=== PATIENT | female | born 1930 | race Caucasian/White ===

== ENCOUNTER → 2017-09-03 | Outpatient (CLI) | payer OTHER, MEDICARE ==
[~2017-09-03] MED LIST: AMARYL1 MG PO; APAP500 PO; ASPIRIN EC81 M1 PO; ATENOLOL 25 MG25 M1 PG; CALCIUM PO; DILTIAZEM 24HR180 MG PO; FLAX OIL1000 MG PO; FOSINOPRIL SODI20 M1 PO; GLUCOPHAGE1000 MG PO; IBUPROFEN 200200 M1 PO; NORCO 5-325 TA1 EACH PO; RECLAST 55 MG/100 M IV; SIMVASTATIN40 MG PO
== END ==
LOC: RAD 08:47
DX: Z12.31 Encounter for screening mammogram for malignant neoplasm of breast (principal)

== ENCOUNTER → 2018-09-06 | Outpatient (CLI) | payer OTHER, MEDICARE | LOC: RAD 04:23 | DX: Z12.31 Encounter for screening mammogram for malignant neoplasm of breast (principal) ==

== ENCOUNTER 2018-12-15 10:07 | Inpatient (IN) | payer OTHER, MEDICARE ==
[~2018-12-15] VITALS: Ht 152.4 cm; Wt 59.9 kg
--- NOTE | ~2018-12-15 | HC ---
[facility] [address] [place] [address] CONSULTATION Name: ELINORCHELLY SHEEHAN Room #: 226-P [facility] IN M.R.#: [id number] Admission: 12/15/18 ������������������ Attend Phys: Barbara Love Discharge: ������������������ Date of : [birth year] Report #: [id number] THIS REPORT FOR: //name// CC: Barbara Mosqueda DATE OF SERVICE: 12/18/2018 HISTORY OF PRESENT ILLNESS: The patient is an 88-year-old white female who had a ground level fall 2 days prior to admission, had severe onset of back pain. She apparently was lifting groceries out of car. She was noted to have chronic L2 fracture, L3 superior endplate fracture and a T12 superior compression fracture. She underwent a T12 kyphoplasty on 12/17/2018 and her symptoms are much improved. Still is needing some assistance with functional mobility and we are seeing her in rehabilitation medicine consultation. PAST MEDICAL HISTORY: Includes diabetes mellitus type 2, peripheral neuropathy, mitral valve prolapse, carotid endarterectomy. She has had a prior laminectomy, chelation therapy every 8 weeks. MEDICATIONS: Please see the full medication listing. ALLERGIES: CODEINE. HABITS: No history of tobacco or alcohol abuse. SOCIAL HISTORY: Lives in an apartment alone, was premorbidly independent without adaptive device. Daughter lives nearby. REVIEW OF SYSTEMS: No current complaints of chest pain, shortness of breath, abdominal discomfort. She does have some distal lower extremity numbness, which is premorbid with her peripheral neuropathy. Otherwise, no focal extremity pain complaints. She notes the back pain is significantly improved, but still has concerns regarding returning back home. She is min assist with sit to stand transfers, min assist with ambulating 175 feet. Tone of the lower extremities appeared to be intact. She does have some decreased distal sensation. ASSESSMENT: An 88-year-old white female with following problems: 1. T12 compression fracture, status post kyphoplasty on 12/17/2018 with improvement in symptomatology. 2. Noted L2 and L3 vertebral body endplate fractures as well. 3. Hyponatremia that will need to be monitored post-discharge. 4. Diabetes mellitus type 2. 5. Peripheral neuropathy. 6. Recent fall with some gait instability. [facility] [address] [place] [address] CONSULTATION Name: CHELLY ALDRICH Room #: 226-P [facility] IN M.R.#: [id number] Admission: 12/15/18 ������������������ Attend Phys: Barbara Love Discharge: ������������������ Date of : [birth year] Report #: [id number] PLAN: The patient is min assist with basic mobility. She certainly is doing much better with the improvement in pain, but would recommend staying until tomorrow to get further therapy to work on advancing her independence and assess regarding gait aids. Case management to assist regarding home health care. If the patient still does not feel ready for discharge back to the home setting tomorrow, we would recommend a short correction facility stay. She appears on board per my history with her as far as going directly home tomorrow after getting a little more therapy. Thank you for asking us to assist in this patient's care. ��������������������������������������������� ���������������������������������������� By: ��������������������������������������������� 1305 [id number] Joselo Sumner MD /nt
[2018-12-15 10:12] VITALS: BP 187/68
[2018-12-15] MEDS ORDERED: ECOTRIN325 MG PO (11:04)
[2018-12-15] MEDS ORDERED: MUCINEX600 MG PO (11:06)
[2018-12-15] MEDS ORDERED: METAMUCIL1 EAC1 PO (11:10)
[2018-12-15] MEDS ORDERED: PROBIOTIC1 EAC5 PO (11:11)
[2018-12-15] MEDS ORDERED: VENTOLIN HFA 1818 GM INH (11:11)
[2018-12-15] MEDS ORDERED: ALLEGRA ALLERGY60 MG PO (11:12)
[2018-12-15 12:50] LABS: ABSOLUTE NEUTROPHILS 5.5 thou/uL (1.4-8.2); BASOPHILS 0.3 % (0.0-2.0); EOSINOPHILS 2.8 % (0.0-3.0); HEMOGLOBIN 11.5 gm/dL (12.0-15.0); LYMPHOCYTES 13.9 % (24.0-44.0); MCH 34.4 pg (26.0-34.0); MCHC 34.8 g/dL (28.0-37.0); MCV 98.9 fL (80.0-100.0); MONOCYTES 7.2 % (1.0-8.0); PLATELET COUNT 230 thou/uL (150-400); POLYS 75.8 % (36.0-66.0); RBC 3.34 mil/uL (4.20-5.00); RDW 13.7 % (10.5-14.5); WBC 7.2 thou/uL (4.0-11.0)
[2018-12-15 12:56] LABS: CALCIUM 8.6 mg/dL (8.5-10.1); CREATININE 0.7 mg/dL (0.6-1.0); POTASSIUM 4.5 mmol/L (3.5-5.1)
[2018-12-15 14:10] VITALS: BP 141/55
--- NOTE | 2018-12-15 14:14 | NUR ---
ATTEMPTED TO CALL REPORT; CHRISTINA LEIGHPT RN, "JUST ADMITTED ANOTHER PT SO CAN SHE CALL YOU BACK IN ABOUT 5 MINUTES?"; ESTEBAN, WARDROBE SPECIALTY WORKER, AWARE
[2018-12-15 17:08] VITALS: BP 145/51
--- NOTE | 2018-12-15 18:32 | NUR ---
PT ARRIVED TO ROOM FROM ED IN STABLE CONDITION AT APPROX 1500. ADMISSION ASSESSMENT COMPLETED. A&O,X4. C/O BACK PAIN FROM A FALL TWO DAYS AGO, NO PAIN MEDS REQUESTED AT THIS TIME. DAUGHTER AT BEDSIDE. ROOM AIR, NO SOA. REGULAR HEART SOUNDS, NO CHEST PAIN. SKIN INTACT. WILL CONTINUE TO MONITOR.
--- NOTE | 2018-12-15 19:23 | NUR ---
PT QUESTIONED METFORMIN DOSE, DOSE DOES NOT MATCH HOME DOSE. PHYSICIAN NOTIFIED. INSTRUCTED TO ASK PHARMACY. NO CHANGE IN DOSE AT THIS TIME. PT AWARE.
[2018-12-15 19:35] VITALS: BP 147/53
[2018-12-15 23:02] VITALS: BP 143/54
[2018-12-16 04:50] VITALS: BP 153/54
--- NOTE | 2018-12-16 05:26 | NUR ---
Around 2099, the staff was told the patient called for pain medication. When the staff got into the patient's room, patient was crying, angry, saying that she had called for pain medication one hour ago, nobody did anything to her. According to the patient, " the day girl" told her she would give her pain medication, but the day girl disappeared. According to the day nurse Jason, she gave the patient pain medication before she left. I checked the chart, patient got Hydrocondone at 191. It was Q4 hours. I explained it to the patient.Patient was angry, crying that it did not help, she needed something stronger. The staff called the nursing practioner Ms. Trinidad, Fentanyl ordered and given to the patient at 2130. During the time, the patient complained that the day nurse did not give her enough IV fluid. The stuff encouraged the patient to drink water. Patient's IV was infiltrated, the staff put a new IV in, the patient asked for two nursed to be present, she voiced that she needed one nurse to hold her hand, because she was a big baby. I told her the staff were busy, nobody was available. I put an IV in. The patient then asked to go to the bed commode. The staff helped the patient move, but the patient was too weak to do any movement. The staff moved the patient's two legs to the bed side. Then the patient held her right arm out, the staff tried to help the patient to sit on the bed multiple times, but failed, the patient could not move any part of her body at all. The staff asked the DESSERT CUP MACHINE FEEDER TT for help. The patient said two girls could not make it, she asked for a male helper. TT told the patient that we had no male helper on the floor. TT told the staff that she saw the patient got up herself with one assist. According to the day nurse, the patient got up to bed commode with one assist. The staff told TT to help the patient get up, the staff needed to prepare for a new admission coming. during the time of staff being with the patient, which was about one hour, patient told the staff about her family, her children, grandchildren. Patient seemed to be happy. When the staff came back to the nursing station from work with another patient, the staff saw the patient was sitting on the bed commode, the staff heard the water running in the bathroom, TT explained that the patient wanted to hear the water running. The patient sat on the bed commode for a while, TT was standing by the door to watch her. The patient could not urinate, asked to go to the bathroom. The staff helped the patient go to the bathroom, and the staff let TT take the care because the staff needed to work for another patient. After the staff came back to the nursing station, the staff saw the patient was in bed, TT reported that the patient had urination in the bathroom, no need to do bladder scan because the staff planned to do bladder scan in case the patient could not urinate due to the injury in the spine. During the time when the patient stayed in bed, the patient asked for water, the staff and TT both went to the room for the service. The patient called for lip stick, the staff went there and got it for her. The patient drank a lot of water. Around 0400, after the staff came to the nursing station from work with another patient, THOMAS Ziegler was seen with the patient, Toney asked me to take care of my patient,she left. The staff put the hand under the patient's right arm, helped the patient got back to the bed commode, the patient urinated well. The patient sat on the bed commode for about 15 minutes, the staff stayed in the room waiting because the patient was on risk of fall. After urination, the patient asked for tissue paper, the staff gave the tissue paper to the patient, the patient refused it, the staff went to the bathroom and got the toilet paper for the patient. After that the staff helped the patient to pull up her pants, patient complained that the staff did not do it in a right way, the staff said sorry because the staff had one hand hold the patient, did not work on her pants in a proper way with another hand, also because both the patient and the staff were sitting by the bed commode. The patient complained that staff was not sympathetic,the staff told the patient," I have been trying to help you." The patient wanted to head upper to the bed, the staff tried to help push her,the patient said the staff was not gentle. The staff tried to lower the bed head, the patient was angry, but with the bed head being high, it was impossible to move her body. With the bed head lower and the staff held under the patient's arm, the patient moved her body up. The staff adjusted the bed head and covered the patient with the blanket, was about to leave the room, TT came in to take vital signs for the patient. And after that, TT asked for help, the staff was about to help, Toney asked the staff to help her patient so she could help this patient. After that the staff heard the patient call, the staff went to the patient room, the patient said she wanted pain medication, but did not want the staff. The staff asked Toney to get the pain medication for the patient. The IVF was turned off by somebody without telling the staff but the patient refused to be connected by the patient. The staff asked Toney help connect the IVF.
[2018-12-16 08:37] VITALS: BP 190/56
[2018-12-16 10:35] LABS: CALCIUM 8.2 mg/dL (8.5-10.1); CREATININE 0.6 mg/dL (0.6-1.0); POTASSIUM 4.6 mmol/L (3.5-5.1)
[2018-12-16 16:40] VITALS: BP 138/55
--- NOTE | 2018-12-16 16:43 | NUR ---
PT ADMITTED RELATED TO FALL, L2 COMPRESSION FX. CM REVIEWED CHART AND SPOKE WITH CARE TEAM. CM MET WITH PT AT BEDSIDE THIS DAY. PT IS A&O X4. CM ROLE INTRODUCED. PT INDICATED SHE LIVES IN AN INDEPENDENT LIVING APARTMENT AT [facility]. 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 PT INDICATED NO DME OR HH HX. PT INDICATED SHE PLANS TO RETURN HOME ONCE MEDICALLY STABLE. CM TO FOLLOW INDICATED WITH DC PLANNING.
[2018-12-16 19:15] VITALS: BP 144/67
--- NOTE | 2018-12-17 01:30 | NUR ---
Assumed care of pt at 1900. Pt anxious to find out MRI results. T12 fx showing on MRI. Radiologist recommends kyphoplasty if back pain persists. Will report to am nurse. Prn pain meds administered for back pain. UA sent to lab. IVF infusing. Call light within reach. Will continue to monitor.
[2018-12-17 02:45] VITALS: BP 154/61
[2018-12-17 06:40] LABS: ALBUMIN 2.7 g/dL (3.4-5.0); CALCIUM 7.9 mg/dL (8.5-10.1); CREATININE 0.7 mg/dL (0.6-1.0); MAGNESIUM 1.7 mg/dL (1.8-2.4); PHOSPHORUS 2.9 mg/dL (2.5-4.9); POTASSIUM 4.5 mmol/L (3.5-5.1)
[2018-12-17 07:00] VITALS: BP 145/50
[2018-12-17 07:45] LABS: FOLIC ACID 51.3 ng/mL (8.6-58.9)
--- NOTE | 2018-12-17 10:05 | NUR ---
Assumed pt care at 7am.Pt in bed alert and oriented x4.Assessment completed. vss.Pt c/o back pain rated 5/10.Pt unable to have po pain med due to procedure scheduled at 10am.Pt uo bathroom with occ. thearpist assist.Consent signed and pt left for radiology dept at 0920 for kyphoplasty.Will continue to monitor.
[2018-12-17 16:12] VITALS: BP 144/58
[2018-12-17 19:10] VITALS: BP 130/52
--- NOTE | 2018-12-18 03:36 | NUR ---
ASSUMED PT CARE 1899. PT ALERT AND ORIENTED. VSS. IV DRESSING C/D/I, NO SIGNS OF INFILTRATION. REASSESSMENT COMPLETE. PT REPORTS PAIN IN R HIP, SAYS PAIN IS INTENSIFYING AND STARTING TO SPREAD ACROSS AND UP HIS BACK AND DOWN INTO HIS LEG. DR. SCOTT CONTATCED, ORDERS RECEIVED. PT HAD SOME BLOODY URINE, DR SCOTT ALSO NOTIFIED, WILL CONTINUE TO MONITOR. PT CALL LIGHT AND PERSONAL BELONIGNS WITHIN REACH. WILL CONTINUE POC UNTIL EOS.
[2018-12-18 04:19] VITALS: BP 163/60
--- NOTE | 2018-12-18 04:25 | NUR ---
ASSUMED PT CARE 1899. PT ALERT AND ORIENTED. REASSESSMENT COMPLETE. VSS. PT REPORTS MILD PAIN AND NAUSEA, SEE EMAR. IV DRESSING C/D/I, NO SIGNS OF INFILTRATION. FALL RISK PRECAUTIONS IN PLACE. PT CALL LIGHT AND PERSONAL BELONINGS WITHIN REACH. WILL CONTINUE POC UNTIL EOS.
[2018-12-18 05:48] LABS: ALBUMIN 2.4 g/dL (3.4-5.0); CALCIUM 7.6 mg/dL (8.5-10.1); CREATININE 0.6 mg/dL (0.6-1.0); PHOSPHORUS 2.5 mg/dL (2.5-4.9); POTASSIUM 4.4 mmol/L (3.5-5.1)
[2018-12-18 08:32] VITALS: BP 179/68
--- NOTE | 2018-12-18 09:59 | NUR ---
ASSUMED CARE OF PT AT 0700. ASSESSMENT COMPLETED. A&O,X4. C/O BACK PAIN, PAIN MEDS GIVEN ORDERED. KYPHO/VERTEBROPLASTY 12/17 - BANDAID WITH DRIED DRAINAGE IN PLACE, NO ACTIVE BLEEDING. SKIN INTACT. ACHS, INSULIN REFUSED AND TAKING ANTIDIABETIC MEDS GIVEN ORDERED. PT IN STABLE CONDITION. TRANSFERRED TO ROOM 226 VIA WHEELCHAIR, DAUGHTER AWARE.
[2018-12-18 10:15] VITALS: BP 161/64
[2018-12-18] MEDS ORDERED: HYDROCODON-ACE1 EAC7 PO (10:47)
[2018-12-18] MEDS ORDERED: AZITHROMYCIN 2250 MG PO (11:42)
[2018-12-18] MEDS ORDERED: CYCLOBENZAPRINE5 MG PO (11:42)
[2018-12-18] MEDS ORDERED: COLACE100 MG PO (11:42)
--- NOTE | 2018-12-18 14:39 | NUR ---
ISRAEL reviewed chart and spoke with nursing and attending physician. Pt was transferred to [facility] from this morning. 5N rehab physician evaluated pt. Pt is too high level for admission to inpt acute rehab. Recommendation made for pt to go home with HH v. SNF placement. ISRAEL updated attending physician. ISRAEL is following to assist as needed with discharge planning.
--- NOTE | 2018-12-18 16:14 | NUR ---
DISCHARGE PLANNING. POST ACUTE CARE RECOMMENDED FOR PATIENT AT DISCHARGE. REFERRAL FAXED TO [facility], [facility] ADMISSIONS, VERIFIED RECEIVED. DAUGHTER IN CONTACT WITH [facility]. INSURANCE AUTH WILL NEED TO BE OBTAINED. FOLLOWING TO ASSIST WITH DISCHARGE NEEDS. UNIT CM/SW AWARE.
--- NOTE | 2018-12-18 18:36 | NUR ---
PATIENT TRANSFERRED FROM [facility], REPORT FROM ANNIKA/RN. PATIENT ALERT AND ORIENTED CAN BE FORGETFUL. PATIENT C/O PAIN WITH MID-BACK AREA, HYDROCODONE 1 TABLET GIVEN WITH PARTIAL RELIEF. NEW ORDER FOR LIDOCAINE PATCH APPLIED TO MID-BACK. PATIENT HAS RIGHT AC IV WITH NS AT 125CC/HR. DR GRADY HERE HIS AM AND PUT ORDER IN FOR DISCHAGE, BUT PATIENT FELS SHE IS NOT READY, CALLED DR GRADY, HE STATES TO HAVE PHYSICAL THERAPY WORK WITH PATIENT AND SHE COULD STILL GO HOME THIS AFTERNOON. PATIENT'S DAUGHTER HERE NOT SURE IF PATIENT SAFE TO GO HOME. DR WALKER CAME TO SEE PATIENT AND FEELS OK FOR PATIENT TO STAY ANOTHER NIGHT, THIS RN CALLED DR GRADY, LET HIM TALK TO DR WALKER, PATIENT WILL STAY AND GO HOME TOMORROW OR SKILLED. PATIENT WORKED WITH PT LORI THIS AFTERNOON, SHE AMBULATED IN HALLWAY, PT [id number] PATIENT COULD USE A FEW MORE DAYS OF REHAB. PROCEDURE DONE ON THE 12TH KYPHOPLASTY. WILL CONTINUE MONITOR.
[2018-12-18 20:24] VITALS: BP 162/63
--- NOTE | 2018-12-19 04:57 | NUR ---
Pt A/OX4,pleasant. Up with assist of 1,RW/GB to the bathroom without problems. C/o pain to mid upper back LOP 4/10 medicated with [place] per EMAR with relief reported. Bandaid in place on mid back where kyphoplasty was done with dried blood noted. IV fluids infusing via RAC without any problems. Bed alarm on,call light/personal items placed within reach.Pt calling appropriately for help.Resting with eyes closed at this time will continue to monitor pt.
[2018-12-19 07:35] LABS: ALBUMIN 2.7 g/dL (3.4-5.0); CALCIUM 8.2 mg/dL (8.5-10.1); CREATININE 0.5 mg/dL (0.6-1.0); PHOSPHORUS 2.7 mg/dL (2.5-4.9); POTASSIUM 4.2 mmol/L (3.5-5.1)
[2018-12-19 08:15] VITALS: BP 185/59
--- NOTE | 2018-12-19 09:58 | NUR ---
ISRAEL reviewed chart. Discharge orders for SNF completed. ISRAEL left voice message for Ana Laura at [facility] yesterday afternoon around 1700 to notify of referral and anticipated discharge. sponge hooker faxed d/c orders/summary to [facility] this morning and has left two voice messages for Ana Laura. ISRAEL met with pt and dtr at bedside to provide update. Awaiting call back from Ana Laura at this time. Chart copy requested. ISRAEL is following to assist as needed with discharge planning.
--- NOTE | 2018-12-19 18:21 | NUR ---
ASSUMED CARE OF PATIENT AT 0715, PATIENT ALERT AND ORIENTED X 4. UP WITH ASSIST X 1 WITH GAIT BELT AND WALKER. PATIENTDENIES PAIN THIS AM, BUT AFTER PHYSICAL THERAPY SHE C/O PAIN WITH BACK AREA 01/15, PATIENT RECEIVED HYDROCODONE 1 TABLET X 1, WITH PARTIAL RELIEF 12/15. PATIENT STILL WAITING ON INSURANCE AUTH. FOR REHAB. DAUGHTER HAS BEEN AT BEDSIDE MOST OF THE DAY. PATIENT HAS RIGHT FOREARM IN WITH NS AT 125CC/HR. PATIENT HAS HAD FREQUENT URINATION, NO BURNING OR PAIN WITH URINATION. PATIENT GIVEN MIRALAX THIS SHIFT DUE TO NO BM. WILL CONTINUE TO MONITOR.
[2018-12-19 19:58] VITALS: BP 184/74
[2018-12-19 23:10] VITALS: BP 131/56
--- NOTE | 2018-12-20 00:45 | NUR ---
Pt A/OX4,up with AX1 RW/GB. C/o pain to mid upper back,medicated with [place] with some relief reported. Bandaid on mid upper back sp kyphoplasty with some dried blood noted on it. Bp was elevated at beginning of shift 184/74 medicated with scheduled Atenolol and rechecked after an hr BP 131/56 and pt happy with the results. Pt had a BM after taking Miralax,peeing without problems. IV infiltrated reinserted on RAC,IVF infusing without a problem.Bed alarm on and bed in lowest position with call light within reach. Calls approp. Will continue to monitor pt.
[2018-12-20 07:45] VITALS: BP 183/85
--- NOTE | 2018-12-20 07:58 | NUR ---
cm reached out to HALEY AT [facility] AND LEFT VM IN ATTEMPTS TO SPEED UP THE PROCESS FOR POSSIBLE INSURANCE AUTHORIZATION FOR SNF.
[2018-12-20 08:44] VITALS: BP 183/85
--- NOTE | 2018-12-20 12:36 | NUR ---
ISRAEL reviewed chart and spoke with nursing and attending physician. Pt is medically stable for discharge to [facility] SNF. Awaiting insurance authorization at this time. ISRAEL faxed updated clinical info to [facility] for review. Voice message left for Ana Laura in admissions. Director of Case mgmt also left voice message for Ana Laura. ISRAEL spoke with pt's dtr via phone to provide update. ISRAEL is following to assist as needed with discharge planning.
--- NOTE | 2018-12-20 14:03 | NUR ---
PATIENT CARE WAS ASSUMED AT 0715.PATIENT WAS ALERT AND ORIENTED X4.PATIENT HAS IV INTACT WITH FLUIDS INFUSING.PATIENT HAS ACCU CHECKS, BUT HAS BEEN REFUSING INSULIN.PATIENT HAS COMPLAINS OF PAIN IN BACK. PAIN MEDICATION WAS GIVEN IN THE AM.PATIENT IS READY TO BE DISCHARGED.WAITING FOR INSURANCE AUTHORIZATION, AT THIS TIME.CALL LIGHT,PHONE, AND PERSONAL BELONGINGS ARE WITHIN REACH.
--- NOTE | 2018-12-20 14:15 | NUR ---
PATIENT WAS DISCHARGED TO GO TO NURSING FACILITY.IV WAS TAKEN OUT.PAPERWORK WAS GIVEN TO DAUGHTER.DAUGHTER WILL BE TRANSPORTATING PATIENT TO FACILITY.PATIENT HAS ALL OF HER BELONGINGS.PATIENT WAS TAKEN IN W/C.REPORT WAS CALLED TO NURSE THAT WILL BE TAKING CARE OF HER.PATIENT HAS MEDICATIONS THAT SHE DOESN'T WANT ANYMORE, AND ASKED IF THEY CAN DISPOSE OF THE PERSONAL MEDICATION.
== END 2018-12-20 14:19 | DRG 515 ==
LOC: ER 10:07 → SICU 12:52 → EROBS 12:52 → 4E 12:52 → SICU 12-18 11:00 → ENTRNSPT 12-20 13:32 → EDTRNSPTSTS 12-20 13:36 → SICU 12-20 14:19
PROVIDERS: Nurse Practitioner Family; Radiology Diagnostic Radiology; ADMIT Hospitalist
PROC: 0PU43JZ Supplement Thoracic Vertebra with Synthetic Substitute, Percutaneous Approach (ICD-10-PCS; principal; 2018-12-17)
PROC: 0PS43ZZ Reposition Thoracic Vertebra, Percutaneous Approach (ICD-10-PCS; principal; 2018-12-17)
DX: S22.089A Unspecified fracture of T11-T12 vertebra, initial encounter for closed fracture (principal); E43 Unspecified severe protein-calorie malnutrition; S32.029A Unspecified fracture of second lumbar vertebra, initial encounter for closed fracture; S32.039A Unspecified fracture of third lumbar vertebra, initial encounter for closed fracture; E87.1 Hypo-osmolality and hyponatremia; E11.9 Type 2 diabetes mellitus without complications; E11.42 Type 2 diabetes mellitus with diabetic polyneuropathy; M81.0 Age-related osteoporosis without current pathological fracture; E83.42 Hypomagnesemia; Z90.49 Acquired absence of other specified parts of digestive tract; I25.2 Old myocardial infarction; Z95.5 Presence of coronary angioplasty implant and graft; Z88.6 Allergy status to analgesic agent; Z79.1 Long term (current) use of non-steroidal anti-inflammatories (NSAID); Z68.25 Body mass index [BMI] 25.0-25.9, adult; W18.39XA Other fall on same level, initial encounter; Y93.89 Activity, other specified; Y92.89 Other specified places as the place of occurrence of the external cause; Y99.8 Other external cause status
CPT/HCPCS: 10084; 15002

== ENCOUNTER → 2019-08-21 | Outpatient (CLI) | payer OTHER, MEDICARE ==
[~2019-08-21] MED LIST changes: +ALLEGRA ALLERGY60 MG PO; +AZITHROMYCIN 2250 MG PO; +COLACE100 MG PO; +CYCLOBENZAPRINE5 MG PO; +ECOTRIN325 MG PO; +HYDROCODON-ACE1 EAC7 PO; +METAMUCIL1 EAC1 PO; +MUCINEX600 MG PO; +PROBIOTIC1 EAC5 PO; +VENTOLIN HFA 1818 GM INH
== END ==
LOC: NUC 09:51
DX: M81.0 Age-related osteoporosis without current pathological fracture (principal); M85.89 Other specified disorders of bone density and structure, multiple sites; Z88.8 Allergy status to other drugs, medicaments and biological substances; Z78.0 Asymptomatic menopausal state